=== PATIENT | female | born 1995 | race Hispanic/Latino ===

== ENCOUNTER 2018-06-10 08:55 | Outpatient (CLI) | payer MEDICAID ==
--- NOTE | 2018-06-10 10:52 | ULT ---
TRANSVAGINAL PELVIS ULTRASOUND WITH DOPPLER: HISTORY: Pelvic pain. Right lower quadrant pain. COMPARISON: None. FINDINGS: The uterus measures 6.7 x 2.6 x 2.5 cm. The endometrial thickness is 5 mm. The right ovary measures 2.4 x 1.8 x 1.6 cm, and the left ovary measures 2.8 x 2.2 x 1.7 cm. A 2.9 cm right ovarian cyst is present. IMPRESSION: Normal exam. POS: [facility]
== END 2018-06-10 08:56 | disposition home or self-care (01) ==
LOC: SCSULT 08:55
PROVIDERS: ATTEND Nurse Practitioner Women's Health
DX: R10.2 Pelvic and perineal pain (principal)
CPT/HCPCS: 76856